=== PATIENT | female | born 1960 | race African-American/Black ===

== ENCOUNTER 2019-01-20 08:44 | Day surgery (SDC) | payer MEDICARE, OTHER ==
[2019-01-20] MEDS ORDERED: PROPOFOL 200 MG/20 ML VIAL IV ONE (08:48)
[2019-01-20] MEDS ORDERED: MIDAZOLAM HCL 2 MG/2 ML VIAL ONE (08:48)
[2019-01-20] MEDS ORDERED: LIDOCAINE HCL 2% PF 100MG/5ML VIAL IJ ONE (08:48)
[2019-01-20] MEDS ORDERED: ceFAZolin SODIUM 1 GM VIAL ONE (08:48)
[2019-01-20] MEDS ORDERED: LACTATED RINGERS 1,000 ML IV.SOLN IV ONE (08:48)
== END 2019-01-20 12:50 | disposition home or self-care (01) ==
LOC: OPSURG 08:44
PROVIDERS: ATTEND Physical Medicine & Rehabilitation
DX: M79.662 Pain in left lower leg (principal); M25.572 Pain in left ankle and joints of left foot
CPT/HCPCS: 63650; J0690; J2001; J2250; J2704; J7120